=== PATIENT | female | born 1995 | race Caucasian/White ===

== ENCOUNTER 2017-07-24 09:35 | Emergency (ER) | payer MEDICAID ==
[~2017-07-24] VITALS: Ht 157.5 cm; Wt 60.0 kg
[2017-07-24 12:45] VITALS: BP 117/67
== END 2017-07-24 12:48 | disposition home or self-care (01) ==
LOC: EDBD 09:38 → EMS 09:38
DX: J06.9 Acute upper respiratory infection, unspecified (principal)
CPT/HCPCS: 71020; 99284